=== PATIENT | female | born 1970 | race Caucasian/White ===

== ENCOUNTER 2024-05-13 07:09 | Outpatient (CLI) | payer BC | END 2024-05-13 07:10 | disposition home or self-care (01) | LOC: ULT 07:09 | PROVIDERS: ATTEND Student in an Organized Health Care Education/Training Program | DX: R19.00 Intra-abdominal and pelvic swelling, mass and lump, unspecified site (principal) | CPT/HCPCS: 76700 ==

== ENCOUNTER 2024-05-31 08:06 | Outpatient (CLI) | payer BC ==
[2024-05-31] MEDS ORDERED: Iopamidol 370 76% 100 ML VIAL ONE (11:25)
== END 2024-05-31 08:07 | disposition home or self-care (01) ==
LOC: CT 08:06
PROVIDERS: ATTEND Student in an Organized Health Care Education/Training Program
DX: R19.00 Intra-abdominal and pelvic swelling, mass and lump, unspecified site (principal)
CPT/HCPCS: 74177; Q9967